=== PATIENT | male | born 1965 | race Two or more races ===

== ENCOUNTER 2022-07-15 13:21 | Emergency (ER) | payer OTHER ==
[~2022-07-15] VITALS: Ht 172.7 cm; Wt 88.5 kg
[2022-07-15] MEDS ORDERED: CANDESARTAN CIL32 MG PO (13:34)
== END 2022-07-15 18:56 | disposition home or self-care (01) ==
LOC: ER 13:21
DX: U07.1 COVID-19 (principal)